=== PATIENT | female | born 1955 | race Caucasian/White ===

== ENCOUNTER 2018-11-16 08:16 | Outpatient (CLI) | payer OTHER | END 2018-11-16 08:17 | disposition home or self-care (01) | LOC: BICMAMMO 08:16 | PROVIDERS: ATTEND Internal Medicine | DX: Z12.31 Encounter for screening mammogram for malignant neoplasm of breast (principal); Z80.3 Family history of malignant neoplasm of breast | CPT/HCPCS: 77063; 77067 ==

== ENCOUNTER 2018-12-19 07:50 | Day surgery (SDC) | payer OTHER ==
[2018-12-16 14:37] VITALS: BMI 30.2
--- NOTE | 2018-12-19 13:20 | OP ---
DATE OF PROCEDURE: 12/19/2018 INDICATION FOR PROCEDURE: Screening surveillance for colonic polyps (prior history of adenomatous polyps of the colon). PROCEDURES PERFORMED: Colonoscopy with polypectomy and biopsy. DESCRIPTION OF PROCEDURE: After the risks and benefits of the procedure were explained to the patient including risks of bleeding, infection, perforation, reactions to anesthesia, aspiration, and/or pain, informed consent was obtained. The patient was then taken to the endoscopy suite, where deep sedation was administered via propofol and anesthesia support. Once adequate sedation was achieved, the patient was placed in the left lateral decubitus position and a digital rectal examination was performed. Upon completion of this portion of the procedure, the standard colonoscope was introduced into the rectum and advanced to the cecum with some difficulty due to colon tortuosity and redundancy. The quality of the prep was excellent. The patient tolerated the procedure well with no immediate perioperative complications. The patient was then taken to Day Stay in satisfactory condition. FINDINGS: Digital rectal exam: Small external hemorrhoids were seen on external examination. Colon findings: Normal-appearing mucosa was seen in the cecum, along with at the appendiceal orifice and ileocecal valve. Approximately two 3 to 5 mm polyps were seen in the ascending colon and completely removed with a combination of cold snare and hot snare polypectomy. They were both retrieved and placed in a specimen jar for evaluation. A 6 to 7 mm polyp was seen in the transverse colon and completely removed with snare cautery polypectomy. It was retrieved and placed in a specimen jar for evaluation. A 3 to 4 mm polyp was seen in the mid descending colon and completely removed with hot snare polypectomy. It was retrieved and placed in a specimen jar for evaluation. A 3 to 4 mm polyp was also seen in the sigmoid colon and removed completely with cold snare polypectomy. It was retrieved and placed in a specimen jar for evaluation. Normal-appearing mucosa was then seen in the rectum. Random colonic biopsies were taken throughout the entire colon in the ascending, transverse, descending, and sigmoid colons for evaluation of possible microscopic colitis. Small internal hemorrhoids were noted on rectal retroflexion. IMPRESSION: 1. Two 4 to 6 mm ascending colon polyps, status post hot snare polypectomy and cold snare polypectomy. 2. A 6 to 7 mm transverse colon polyp, status post snare cautery polypectomy. 3. A 4 to 5 mm descending colon polyp, status post snare cautery polypectomy. 4. A 3 to 4 mm sigmoid colon polyp, status post cold snare polypectomy. 5. Both internal and external hemorrhoids. RECOMMENDATIONS: 1. We will follow up on the biopsy results with repeat colonoscopy interval depending on pathology. 2. We would recommend a higher fiber diet given the presence of hemorrhoids and a history of diarrhea. 3. Would refrain from any NSAIDs for the time being given polypectomies performed today and history might of dura diarrhea and possible microscopic colitis. For follow up in the GI clinic in 3 weeks for further evaluation of diarrhea. Job ID: [id number]
[2018-12-19] MEDS ORDERED: PROPOFOL 200 MG/20 ML VIAL ONE (15:20)
[2018-12-19] MEDS ORDERED: Lidocaine 1% PF 5 ML VIAL ONE (15:20)
== END 2018-12-19 13:00 | disposition home or self-care (01) ==
LOC: SDC 07:50
PROVIDERS: ATTEND Internal Medicine
PROC: 0DBM8ZX Excision of Descending Colon, Via Natural or Artificial Opening Endoscopic, Diagnostic (ICD-10-PCS; principal; 2018-12-19)
PROC: 0DBN8ZX Excision of Sigmoid Colon, Via Natural or Artificial Opening Endoscopic, Diagnostic (ICD-10-PCS; principal; 2018-12-19)
PROC: 0DBL8ZX Excision of Transverse Colon, Via Natural or Artificial Opening Endoscopic, Diagnostic (ICD-10-PCS; principal; 2018-12-19)
PROC: 0DBN8ZZ Excision of Sigmoid Colon, Via Natural or Artificial Opening Endoscopic (ICD-10-PCS; principal; 2018-12-19)
DX: Z12.11 Encounter for screening for malignant neoplasm of colon (principal); D12.2 Benign neoplasm of ascending colon; D12.3 Benign neoplasm of transverse colon; D12.4 Benign neoplasm of descending colon; K63.5 Polyp of colon; K64.4 Residual hemorrhoidal skin tags; K64.8 Other hemorrhoids; K52.9 Noninfective gastroenteritis and colitis, unspecified; J45.909 Unspecified asthma, uncomplicated; E78.00 Pure hypercholesterolemia, unspecified; I10 Essential (primary) hypertension; Z86.010 Personal history of colon polyps; Z79.51 Long term (current) use of inhaled steroids; Z79.899 Other long term (current) drug therapy; Z88.0 Allergy status to penicillin; Z88.8 Allergy status to other drugs, medicaments and biological substances; Z91.012 Allergy to eggs; Z91.048 Other nonmedicinal substance allergy status
CPT/HCPCS: 88305; J2001; J2704

== ENCOUNTER 2019-11-21 13:56 | Outpatient (CLI) | payer OTHER ==
--- NOTE | 2019-11-21 14:34 | MMO ---
Bilateral MAMMO Bilat Screen [facility]. CLINICAL HISTORY: Patient is 64 years old and is seen for screening. The patient has the following family history of breast cancer: sister, at age 39, UTERINE. The patient has no personal history of cancer. VIEWS: The views performed were: bilateral craniocaudal with tomosynthesis and bilateral mediolateral oblique with tomosynthesis. FILMS COMPARED: The present examination has been compared to a prior imaging study performed at [facility] on 11/16/2018. This study has been interpreted with the assistance of computer-aided detection. MAMMOGRAM FINDINGS: The breasts are heterogeneously dense, which could obscure a lesion on mammography. There is a focal asymmetry seen in the CC view only seen in the inner region of the left breast. In the right breast, there are no suspicious masses, calcifications or areas of architectural distortion. IMPRESSION: FOCAL ASYMMETRY IN THE LEFT BREAST REQUIRES ADDITIONAL EVALUATION. RECOMMEND DIAGNOSTIC MAMMOGRAM. ULTRASOUND MAY ALSO PROVE USEFUL AT RECALL. THE RESULTS OF THIS EXAM WERE SENT TO THE PATIENT. ACR BI-RADS Category 0 - Incomplete: Need additional imaging evaluation. [facility] will notify the patient of the need for additional imaging services. MAMMOGRAPHY NOTE: 1. A negative mammogram report should not delay a biopsy if a dominant of clinically suspicious mass is present. 2. Approximately 10% to 15% of breast cancers are not detected by mammography. 3. Adenosis and dense breasts may obscure an underlying neoplasm. Reported by: DARRON GONZALEZ MD Electonically Signed: [id number]
== END 2019-11-21 13:57 | disposition home or self-care (01) ==
LOC: BICMAMMO 13:56
PROVIDERS: ATTEND Internal Medicine
DX: Z12.31 Encounter for screening mammogram for malignant neoplasm of breast (principal); N64.89 Other specified disorders of breast; Z80.3 Family history of malignant neoplasm of breast
CPT/HCPCS: 77063; 77067

== ENCOUNTER 2019-11-24 12:06 | Outpatient (CLI) | payer OTHER ==
--- NOTE | 2019-11-24 13:50 | MMO ---
Left Breast MAMMO Unilat Diag [facility] LT[facility]LINE. CLINICAL HISTORY: Patient is 64 years old and is seen for diagnostic exam. The patient has the following family history of breast cancer: sister, at age 39, UTERINE. The patient has no personal history of cancer. VIEWS: The views performed were: left craniocaudal spot compression with tomosynthesis and left mediolateral with tomosynthesis. FILMS COMPARED: The present examination has been compared to prior imaging studies performed at [facility] on 11/16/2018, 11/21/2019 and 11/24/2019. This study has been interpreted with the assistance of computer-aided detection. MAMMOGRAM FINDINGS: The breast is heterogeneously dense, which could obscure a lesion on mammography. Additional evaluation was performed for the focal asymmetry in the left breast, inner region seen on 11/21/2019. On the present examination, there is an oval mass measuring 4 millimeters in the middle region of the left breast at 9 o'clock. The mass was shown to be a cyst on ultrasound. There are no suspicious masses, suspicious calcifications, or new areas of architectural distortion. IMPRESSION: THERE IS NO MAMMOGRAPHIC EVIDENCE OF MALIGNANCY. THE PATIENT WAS NOTIFIED OF THE EXAM RESULTS PRIOR TO LEAVING THE CENTER. A ROUTINE FOLLOW-UP MAMMOGRAM IN 1 YEAR IS RECOMMENDED. THE RESULTS OF THIS EXAM WERE SENT TO THE PATIENT. ACR BI-RADS Category 2 - Benign finding MAMMOGRAPHY NOTE: 1. A negative mammogram report should not delay a biopsy if a dominant of clinically suspicious mass is present. 2. Approximately 10% to 15% of breast cancers are not detected by mammography. 3. Adenosis and dense breasts may obscure an underlying neoplasm. Reported by: JAMI LOYOLA MD Electonically Signed: [id number]
--- NOTE | 2019-11-24 14:41 | ULT ---
LEFT BREAST DIAGNOSTIC ULTRASOUND: INDICATION: Followup mass in the left breast 9 o'clock position 2 cm from the nipple. FINDINGS: On real-time ultrasound examination and the examination provided by the nuclear technician, there is an anechoic lobulated cluster of cysts measuring 4.2 x 3.4 mm in the left breast 9 o'clock positio n likely corresponding to mammographic abnormality consistent with the cluster of cysts. IMPRESSION: BIRADS category 2 - benign. Recommend resuming annual mammogram. POS: OFF
== END 2019-11-24 12:07 | disposition home or self-care (01) ==
LOC: BICMAMMO 12:06
PROVIDERS: ATTEND Internal Medicine
DX: R92.2 Inconclusive mammogram (principal)
CPT/HCPCS: G0279